=== PATIENT | male | born 1965 | race Two or more races ===

== ENCOUNTER 2020-12-23 12:49 | Day surgery (SDC) | payer OTHER ==
[~2020-12-23 12:49] MED LIST: AVAPRO300 MG PO
[2020-12-23] MEDS ORDERED: NEURONTIN300 MG PO (17:02)
[2020-12-23] MEDS ORDERED: TYLENOL ARTHRI650 MG PO (17:02)
[2020-12-23] MEDS ORDERED: MIRALAX17 GM PO (17:02)
[2020-12-23] MEDS ORDERED: ULTRAM50 MG PO (17:02)
== END 2020-12-23 21:20 | disposition home or self-care (01) ==
LOC: CIR.AMB 12:49
PROVIDERS: ATTEND Surgery
DX: K42.9 Umbilical hernia without obstruction or gangrene (principal); K40.90 Unilateral inguinal hernia, without obstruction or gangrene, not specified as recurrent; Z20.822 Contact with and (suspected) exposure to COVID-19